=== PATIENT | male | born 1995 | race Two or more races ===

== ENCOUNTER 2023-09-18 08:11 | Emergency (ER) | payer MEDICAID, OTHER ==
[~2023-09-18] VITALS: Ht 177.8 cm; Wt 86.3 kg
[2023-09-18] MEDS: LIDOCAINE 1% HCL (LOCAL ANESTH.) INJ 20ML MDV IJ ONE (09:18)
[2023-09-18 09:19] VITALS: BP 150/86; PULSE 71; RESP 16; TEMP 97.9; O2SAT 100
== END 2023-09-18 09:37 | disposition home or self-care (01) ==
LOC: ER 08:11
DX: S61.210A Laceration without foreign body of right index finger without damage to nail, initial encounter (principal); S61.214A Laceration without foreign body of right ring finger without damage to nail, initial encounter; W25.XXXA Contact with sharp glass, initial encounter; Y93.89 Activity, other specified; Y92.89 Other specified places as the place of occurrence of the external cause; Y99.8 Other external cause status
CPT/HCPCS: 12002; 99282; J2001

== ENCOUNTER 2024-01-03 06:53 | Emergency (ER) | payer MEDICAID ==
[~2024-01-03] VITALS: Ht 177.8 cm; Wt 96.6 kg
[2024-01-03 07:39] VITALS: BP 145/100; PULSE 73; RESP 17; TEMP 98; O2SAT 98
--- NOTE | 2024-01-03 07:41 | ED.PDOC ---
[place]. trauma (HPI) HPI Comments 28 year old male presents for tenderness over the sternal bone Noticed the lump 3 months ago and reports the size is gradually growing Reports tension when leaning backwards No other complaint Denies chest pain shortness of breath Chief Complaint: Chest Wall Injury Time Seen by MD: 07:31 Primary Care Provider: HILDA Lucas notes: Nurses Notes, Allergies Allergies: Coded Allergies: NO KNOWN ALLERGIES (Unverified , 09/18/23) Information Source: Patient Mode of Arrival: Ambulatory Past Medical History PAST MEDICAL HISTORY: Denies Surgical History: Denies all surgeries Family History Family History: Reviewed,noncontributory to illness Social History Smoker: Non-Smoker Alcohol: Denies ETOH Use Drugs: Denies Drug Use Lives In: Home All Other Systems: Reviewed and Negative (Per HPI) Physical Exam General Appearance: No Apparent Distress, Normal HEENT: Normal ENT Inspection, Pharynx Normal, TMs Normal Neck: Full Range of Motion, Non-Tender, Normal, Normal Inspection Respiratory: Chest Non-Tender, Lungs Clear, No Accessory Muscle Use, No Respiratory Distress, Normal Breath Sounds Cardiovascular: No Edema, No JVD, No Murmur, No Gallop, Normal Peripheral Pulses, Regular Rate/Rhythm, Other (Palpable 1 cm cyst to the sternum. No ecchymosis. No open wounds. 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 Was a procedure done?: No Differential Diagnosis Multiple Trauma: Other X-Ray, Labs, Meds, VS Vital Signs Date Time Temp Pulse Resp B/P (MAP) Pulse Ox O2 Delivery O2 Flow Rate FiO2 01/03/24 07:39 98.0 73 17 145/100 (115) 98 98.0 01/03/24 07:39 73 17 98 Room Air 01/03/24 07:20 98.0 73 17 145/100 (115) 98 PATIENT: BELEM FOREMAN AACCT: [id number]: [id number] : 1995 LOC: ER ROOM / BED: / AGE / SEX: 28 / M ADM STATUS: REG ER SERVICE 7 ORDERING PHYSICIAN: JD ORR NP PROCEDURE(s): CHSTU - CHEST ULTRASOUND REASON: possible cyst? sternum ORDER NUMBER(s): [id number], ACCESSION NUMBER(s): [id number] US CHEST ULTRASOUND, HISTORY: possible cyst sternum COMPARISON(S): None TECHNICAL DATA: Transverse and longitudinal images are obtained of the chest. FINDIN.4 x 0.3 x 0.3 cm anechoic cystic lesion adjacent to the sternum. IMPRESSION(S): 1. 0.4 x 0.3 x 0.3 cm anechoic cystic lesion adjacent to the sternum appears to be a cyst and too small for drainage. ATED BY: NATHANAEL SALEH MD DICTATED DATE/TIME: 01/03/24934 SIGNED BY: NATHANAEL SALEH MD SIGNED DATE/TIME: 01/03/24934 CC: X-Ray, Labs, Meds, VS Comment Patient is stable for discharge at this time. External notes reviewed. Test results and diagnostic imaging interpreted. All diagnostic findings, discharge care, education and instructions provided Follow-up with PCP in 2 to 3 days Patient verbalized understanding and agreed to treatment plan Vital signs stable, afebrile, no acute distress noted Patient ambulatory with strong steady gait Advised to return precautions for any new or worsening symptoms, return to ER immediately for re-evaluation Patient is aware that the purpose of this visit was for an acute medical emergency requiring emergent stabilization. Chronic conditions, including malignancies have not been ruled out. Patient is instructed to follow up with PCP as directed and discharge instructions for continued care and workup. If unable to arrange follow-up, patient is to return to the emergency department for reassessment. Patient (parent or legal guardian if applicable) was given verbal and written discharge instructions and acknowledges understanding. Time of 1ST Reevaluation: 09:40 Reevaluation 1ST: Improved Patient Education/Counseling: Diagnosis, Treatment Family Education/Counseling: Diagnosis, Treatment Departure 1 Departure Time of Disposition: :41 Impression: Primary Impression: Cyst Disposition: 01 HOME / SELF CARE / HOMELESS Condition: Stable Discharged With: Self Critical Care Note Critical Care Time?: No Stability Stability form required: No Heart Score Heart Score: Heart Score Response (Comments) Value History N/A 0 EKG N/A 0 Age N/A 0 Risk Factors N/A 0 Troponin N/A 0 Total 0 JD ORR NP Jan 03, 2024 07:41
--- NOTE | 2024-01-03 08:15 | DVH ---
EXAM: XY CHEST TWO VIEWS ROUTINE CLINICAL HISTORY: Hernia COMPARISON: None TECHNIQUE: Frontal and lateral view of the chest was obtained FINDINGS: Lines and Tubes: None Lungs: No focal consolidation. Pleura: No effusion. No pneumothorax. Cardiomediastinal contours: Unremarkable Bones: No acute osseous abnormality. The soft tissues appear within normal limits. IMPRESSION: 1. No acute cardiopulmonary disease. HS:Y
--- NOTE | 2024-01-03 09:38 | DVH ---
US CHEST ULTRASOUND, HISTORY: possible cyst sternum COMPARISON(S): None TECHNICAL DATA: Transverse and longitudinal images are obtained of the chest. FINDIN.4 x 0.3 x 0.3 cm anechoic cystic lesion adjacent to the sternum. IMPRESSION(S): 1. 0.4 x 0.3 x 0.3 cm anechoic cystic lesion adjacent to the sternum appears to be a cyst and too s mall for drainage.
== END 2024-01-03 09:47 | disposition home or self-care (01) ==
LOC: ER 06:53
DX: M85.68 Other cyst of bone, other site (principal)
CPT/HCPCS: 71046; 76604